=== PATIENT | female | born 1965 | race African-American/Black ===

== ENCOUNTER 2022-06-19 16:02 | Emergency (ER) | payer OTHER ==
[2022-06-19 16:11] VITALS: RESP 18; TEMP 97; BMI 33.6
[2022-06-19] MEDS ORDERED: METOCLOPRAMIDE HCL INJECTION 10 MG/2 ML VIAL IVPUSH ONE (18:01)
[2022-06-19] MEDS ORDERED: MECLIZINE HCL 25 MG TABLET (FP) PO ONE (18:01)
[2022-06-19] MEDS ORDERED: MECLIZINE HCL 25 MG TABLET (FP) ONE (18:20)
[2022-06-19] MEDS ORDERED: METOCLOPRAMIDE HCL INJECTION 10 MG/2 ML VIAL ONE (18:20)
[2022-06-19 19:32] LABS: BASO % 0.3 % (0-2.0); EOS % 0.6 % (0-4.5); HEMATOCRIT 37.6 % (32.4-45.2); HEMOGLOBIN 12.5 GM/dL (10.7-15.3); MCH 27.8 pg (25.7-33.7); MCHC 33.1 g/dl (32.0-36.0); MEAN CELL VOLUME 83.8 fl (80-96); MEAN PLT VOLUME 9.7 fl (7.5-11.1); MONO % 8.7 % (3.8-10.2); NEUT % 57.4 % (42.8-82.8); PLATELET COUNT 263 10^3/uL (134-434); RBC 4.48 M/mm3 (3.60-5.2); RDW 14.7 % (11.6-15.6); WHITE BLOOD COUNT 6.7 K/mm3 (4.0-10.0)
[2022-06-19 19:38] LABS: ALBUMIN 3.6 g/dl (3.4-5.0); BLOOD UREA NITROGEN 14.3 mg/dL (7-18); CALCIUM 8.8 mg/dL (8.5-10.1)
[2022-06-19 19:42] LABS: CREATININE 0.5 mg/dL (0.55-1.3)
[2022-06-19 19:43] LABS: INR 1.02 (0.83-1.09); PROTHROMBIN TIME (PATIENT) 11.7 SEC (9.7-13.0); TOT PROT 7.2 g/dl (6.4-8.2)
[2022-06-19 19:46] LABS: ACTIVATED PTT 31.2 SECONDS (25.2-36.5)
[2022-06-19 21:51] VITALS: BP 148/78; PULSE 65
== END 2022-06-19 22:30 | disposition home or self-care (01) ==
LOC: JER 16:02
PROC: 3E033GC Introduction of Other Therapeutic Substance into Peripheral Vein, Percutaneous Approach (ICD-10-PCS; principal; 2022-06-19)
DX: R42 Dizziness and giddiness (principal)
CPT/HCPCS: 36415; 70450-TC; 71045-TC-FY; 80053; 84484; 85025; 85610; 85730; 86850; 86900; 86901; 93005; 93010; 99285-25; C9803-CS; U0003; U0005